=== PATIENT | female | born 1950 | race Caucasian/White ===

== ENCOUNTER → 2017-08-25 | Outpatient (CLI) | payer MEDICARE, OTHER ==
[~2017-08-25] MED LIST: ABILIFY 2 MG2 MG PO; ADULT LOW DOSE81 MG PO; ADVAIR 250-501 EACH IH; ADVAIR 250-501 EACH INH; ADVAIRDISKUS; ALPRAZOLAM 0.0.25 M1 PO; ALPRAZOLAM PO; AMBIEN CR 6.26.25 M1 PO; AMBIEN CR 6.26.25 MG PO; AMBIENCR; ASPIRIN EC325 M1 PO; ATENOLOL 50 MG50 M1 PO; ATENOLOL 50MG T50 M1 PO; BENADRYL25 MG PO; BENTYL20 MG PO; CARISOPRODOL 3350 M1 PO; CARISOPRODOL 3350 MG PO; CARISOPRODOL350 MG PO; CARVEDILOL3.125 MG PO; CATAPRES-TTS 20.2 M1 TD; CATAPRES-TTS 20.2 MG PO; CELEBREX 200 M200 MG PO; CLONIDINE HCL0.2 M2 PO; COREG25 MG PO; CYMBALTA30 MG PO; DESYREL100 MG PO; DESYREL50 MG PO; ESTRACE1 MG PO; ESTRADERM1 EACH TD; FISH OIL 1,0001 EAC5 PO; FLONASE 0.05%50 MCG NS; GLUCOPHAGE500 MG PO; GYNODIOL1 MG PO; HYDROCODON-ACE1 EAC7 PO; HYOMAX; HYOMAX-DT0.375 MG PO; IMITREX100 MG PO; INDOMETHACIN 2525 MG PO; LEVOTHROID112 MCG PO; LEVOTHYROXIN0.112 M1 PO; LISINOPRIL2.5 MG PO; MACROBID 100 M100 M1 PO; MECLIZINE HCL25 M1 PO; MORPHINE SULFAT15 M3 PO; NEURONTIN600 MG PO; NEXIUM 40 MG CA40 M1 PO; ORAMORPH SR15 M1 PO; OSCIMIN0.125 MG PO; PERCOCET PO; PHENERGAN 25 MG25 M1 PO; SIMVASTATIN40 MG PO; TOPAMAX 100 MG100 MG PO; TRAMADOL 50 MG50 MG PO; TRIAMTERENE-HC1 EAC1 PO; VICODIN 5-5001 EACH PO; VITAMIN E100 M1 PO; XANAX 0.25 MG0.25 MG PO; ZANAFLEX4 MG PO; ZOFRAN ODT4 MG PO; ZYRTEC10 M2 PO
== END ==
LOC: M.MRI 08-21 17:30
DX: M19.011 Primary osteoarthritis, right shoulder (principal); M25.411 Effusion, right shoulder

== ENCOUNTER 2017-11-06 00:49 | Emergency (ER) | payer MEDICARE, OTHER ==
[~2017-11-06] VITALS: Ht 149.9 cm; Wt 90.7 kg
[~2017-11-06 00:49] MED LIST changes: -BENADRYL25 MG PO; -COREG25 MG PO; -IMITREX100 MG PO; -INDOMETHACIN 2525 MG PO; -LISINOPRIL2.5 MG PO; -MORPHINE SULFAT15 M3 PO; -PERCOCET PO; -PHENERGAN 25 MG25 M1 PO; -TOPAMAX 100 MG100 MG PO; -ZANAFLEX4 MG PO
[2017-11-06] MEDS ORDERED: INDOMETHACIN 2525 MG PO ×2 (01:35→01:37)
[2017-11-06 01:54] VITALS: BP 146/74
[2017-12-23] MEDS ORDERED: COREG25 MG PO (10:48)
[2017-12-23] MEDS ORDERED: MORPHINE SULFAT15 M3 PO (10:52)
[2017-12-23] MEDS ORDERED: LISINOPRIL2.5 MG PO (10:53)
[2017-12-23] MEDS ORDERED: TRAMADOL 50 MG50 MG PO (10:53)
[2017-12-23] MEDS ORDERED: IMITREX100 MG PO (10:55)
[2017-12-23] MEDS ORDERED: PHENERGAN 25 MG25 M1 PO (10:57)
[2017-12-23] MEDS ORDERED: BENADRYL25 MG PO (10:57)
[2017-12-23] MEDS ORDERED: TOPAMAX 100 MG100 MG PO (10:58)
[2017-12-23] MEDS ORDERED: ZANAFLEX4 MG PO (10:59)
[2018-01-01] MEDS ORDERED: PERCOCET PO (09:59)
== END 2017-11-06 01:55 | disposition home or self-care (01) ==
LOC: M.ERS 00:49
DX: M25.522 Pain in left elbow (principal); I10 Essential (primary) hypertension; E03.9 Hypothyroidism, unspecified; E78.5 Hyperlipidemia, unspecified; J45.909 Unspecified asthma, uncomplicated; M79.7 Fibromyalgia; G43.909 Migraine, unspecified, not intractable, without status migrainosus; Z90.710 Acquired absence of both cervix and uterus; Z88.5 Allergy status to narcotic agent; Z88.6 Allergy status to analgesic agent; Z88.8 Allergy status to other drugs, medicaments and biological substances

== ENCOUNTER → 2018-01-01 | Day surgery (SDC) | payer MEDICARE, OTHER ==
[~2018-01-01] VITALS: Ht 149.9 cm; Wt 91.2 kg
[~2018-01-01] MED LIST changes: +BENADRYL25 MG PO; +COREG25 MG PO; +IMITREX100 MG PO; +INDOMETHACIN 2525 MG PO; +LISINOPRIL2.5 MG PO; +MORPHINE SULFAT15 M3 PO; +PERCOCET PO; +PHENERGAN 25 MG25 M1 PO; +TOPAMAX 100 MG100 MG PO; +ZANAFLEX4 MG PO
[2018-01-01 06:36] LABS: HEMATOCRIT 42.4 % (37.0-47.0); HEMOGLOBIN 14.3 gm/dL (12.0-15.0); MCH 31.5 pg (26.0-34.0); MCHC 33.8 g/dL (28.0-37.0); MCV 93.2 fL (80.0-100.0); RBC 4.55 mil/uL (4.20-5.00); RDW-CV 12.5 % (10.5-14.5); WBC 8.1 thou/uL (4.0-11.0)
[2018-01-01 06:40] LABS: CALCIUM 8.9 mg/dL (8.5-10.1); CREATININE 1.3 mg/dL (0.6-1.3); POTASSIUM 3.9 mmol/L (3.5-5.1)
[2018-01-01 06:45] LABS: ALBUMIN 3.5 g/dL (3.4-5.0); TOTAL BILIRUBIN 0.4 mg/dL (<0.1-1.0); TOTAL PROTEIN 7.4 g/dL (6.4-8.2)
--- NOTE | 2018-01-01 10:52 | EKG ---
[place] [address] ELECTROCARDIOGRAM REPORT Name: INDRA MENDOZA Room: [facility]#: [id number] Admission: 01/01/18 Attend Phys: Mazin Merida DO Discharge: Date of : 46 Report #: [id number] THIS REPORT FOR: //name// [facility] [place] Test Date: 2018-01-01 Test Time: 06:34:53 Pat Name: INDRAONEL MENDOZA Department: Room: Gender: F Paper Sales Representative: LARISSA NIEVES : 1950 Requested By: Mazin Merida Order Number: [id number] MD: Garland Evans Measurements Intervals Andreas Rate: 77 P: 39 PA: 180 QRS: 33 QRSD: 91 T: 41 QT: 382 QTc: 433 Interpretive Statements Sinus rhythm Left ventricular hypertrophy Compared to ECG 04/02/2012 08:11:46 Left ventricular hypertrophy now present T-wave abnormality no longer present Electronically Signed On 01-01-2018 10:52:05 CDT by Garland Evans [email or web address] <ELECTRONICALLY SIGNED> By: Garland Evans MD, [facility] 01/01/18 1052 0634 0634 Garland Evans MD, [facility] /EPI
--- NOTE | 2018-01-15 08:51 | OP ---
[address] [address] OPERATIVE REPORT Name: INDRA MENDOZA Room: [facility]#: [id number] Admission: 01/01/18 Attend Phys: Mazin Merida DO Discharge: Date of : 46 Report #: [id number] THIS REPORT FOR: //name// CC: Mazin Talavera DICTATED BY: Iban Montana DO DATE OF SERVICE: 01/01/2018 PREOPERATIVE DIAGNOSES: Right shoulder rotator cuff tear, superior labrum anterior and posterior tear and osteoarthritis of the glenohumeral joint. POSTOPERATIVE DIAGNOSES: Right shoulder rotator cuff tear, superior labrum anterior and posterior tear and osteoarthritis of the glenohumeral joint. SURGEON: Mazin Merida DO PIPE ORGAN TUNER AND REPAIRER: Iban Montana DO SECOND PIPE ORGAN TUNER AND REPAIRER: Kev Bejarano DO PROCEDURE PERFORMED: Right shoulder arthroscopic surgery with extensive debridement of labrum and rotator cuff, biceps tenotomy, subacromial decompression and open rotator cuff repair. ANESTHESIA: General with local. ESTIMATED BLOOD LOSS: 20 mL. SPECIMEN REMOVED: None. COMPLICATIONS: None. INDICATIONS FOR PROCEDURE: The patient is a pleasant 67-year-old female, was having right shoulder pain who presented to our clinic with difficulty overhead motion and weakness and pain. We attempted conservative care including activity modification, home exercise, steroid injections. This did not provide her relief. She began having issues with activities of daily living and surgical intervention was requested. MRI was performed demonstrating a rotator cuff tear as well as a SLAP tear and some osteoarthritis of the glenohumeral joint. Risks, benefits, complications, alternatives and indications of surgery were discussed with the patient including, but not limited to risk of infection, need for repeat surgery, damage to nerves and vessels, iatrogenic fracture. Other risks include continued pain, loss of motion, loss of repair of her rotator cuff. We also discussed DVT, pulmonary embolism [place] [address] OPERATIVE REPORT Name: NAYELY MENDOZAONEL Queen Room: [facility]#: [id number] Admission: 01/01/18 Attend Phys: Mazin Merida DO Discharge: Date of : 46 Report #: [id number] anesthesia up to and including . She voiced understanding and wished to proceed. DESCRIPTION OF PROCEDURE: The patient was seen in the preoperative holding area. Correct operative site was marked. Verbal and written consents were obtained. She was transferred to the operative suite and placed supine on the operating table and given the benefit of general anesthesia. She was then placed in a beach chair position. Right upper extremity was prepped and draped in the normal sterile fashion. Timeout was performed. All of the attendants were in agreement with the correct operative site and procedure to be performed on the right shoulder. We then marked on the shoulder and using an 11 blade scalpel, obtained our posterior viewing portal. The camera trocar was inserted into the joint followed by a camera and diagnostic arthroscopy was performed. At this point, we noted extensive labral fraying as well as synovial hypertrophy and there was evidence of SLAP tear. We then visualized the underside of the cuff and there was a small tear visualized in the supraspinatus region. 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 At this point, our anterior portal was obtained, localized using a spinal needle followed by an 11 blade scalpel for our portal incision. Blunt instrument was inserted into the shoulder followed by arthroscopic scissors and her biceps tenotomy was performed. We then inserted our arthroscopic shaver and performed extensive debridement of the labrum and rotator cuff as well as any hypertrophic synovium that was visualized. The shaver was removed from the shoulder and our camera was placed in the subacromial space. We then used an 18-gauge spinal needle to obtain a lateral portal. A blunt trocar was inserted followed by arthroscopic shaver and once again a debridement of the bursal side rotator cuff as well as a subacromial decompression was performed. Once again visualized the bursal side of our rotator cuff tear and decided to perform open rotator cuff repair. All instruments were removed from the shoulder and the shoulder was deflated via suction from our camera trocar. We then marked our lateral incision and using a 10 blade scalpel, we made our mini lateral incision for open rotator cuff. This was taken down bluntly to the level of the rotator cuff and once we had direct visualization of our rotator cuff tear, a cuff grasper was used to mobilize the tear as well as a rasp and a probe to free up the undersurface of the cuff. We then decided to use a SpeedFix type repair and our Scorpion was passed and our FiberTape was passed through the cuff, brought over and secured in place with a SpeedFix anchor. The wound was thoroughly irrigated. Muscle was reapproximated using 0 Vicryl in a running fashion. Skin was closed using 2-0 Vicryl in inverted interrupted fashion followed by 3-0 Monocryl subcuticular and Dermabond skin glue for our incision. Portal incisions were closed with 4-0 nylon in a simple interrupted fashion. All needle and scrub counts were correct at the end of the case x 2. The portal incisions were covered with Xeroform, 4 x 4s. The entire shoulder was covered with ABD and tape. SlingShot was placed to the right upper extremity. She was awoken from anesthesia and transferred to the PAC[place] [address] OPERATIVE REPORT Name: INDRA MENDOZA Room: [facility]#: [id number] Admission: 01/01/18 Attend Phys: Mazin Merida DO Discharge: Date of : 46 Report #: [id number] Merida was present throughout all critical decision making aspects of the case. DISPOSITION: The patient will be monitored in the PACU postoperatively and if pain allows, we will send her home today. Follow up with us in 2 weeks as scheduled and begin rotator cuff shoulder protocol. If she is having pain control issues, we will have extended stay for her and plan for discharge tomorrow. <ELECTRONICALLY SIGNED> By: Mazin Merida DO 01/15/18 0851 0929 [id number] Kendra Merida DO /nt
== END | disposition home or self-care (01) ==
LOC: M.SUR 06:05
PROVIDERS: Orthopaedic Surgery
DX: M75.101 Unspecified rotator cuff tear or rupture of right shoulder, not specified as traumatic (principal); M19.011 Primary osteoarthritis, right shoulder; M94.211 Chondromalacia, right shoulder; I12.9 Hypertensive chronic kidney disease with stage 1 through stage 4 chronic kidney disease, or unspecified chronic kidney disease; N18.3 Chronic kidney disease, stage 3 (moderate); E11.22 Type 2 diabetes mellitus with diabetic chronic kidney disease; K21.9 Gastro-esophageal reflux disease without esophagitis; E78.5 Hyperlipidemia, unspecified; J45.909 Unspecified asthma, uncomplicated; E66.09 Other obesity due to excess calories; M79.7 Fibromyalgia; D64.9 Anemia, unspecified; F32.9 Major depressive disorder, single episode, unspecified; Z90.49 Acquired absence of other specified parts of digestive tract; Z90.710 Acquired absence of both cervix and uterus; Z98.51 Tubal ligation status; Z79.899 Other long term (current) drug therapy; X58.XXXA Exposure to other specified factors, initial encounter; Y93.89 Activity, other specified; Y92.89 Other specified places as the place of occurrence of the external cause; Y99.8 Other external cause status

== ENCOUNTER 2019-01-12 12:59 | Emergency (ER) | payer MEDICARE, OTHER ==
[~2019-01-12] VITALS: Ht 154.9 cm; Wt 90.7 kg
[2019-01-12 13:35] LABS: ABSOLUTE BASOPHILS 0.1 thou/uL (0.0-0.2); ABSOLUTE EOSINOPHILS 0.1 thou/uL (0.0-0.7); ABSOLUTE MONOCYTES 0.6 thou/uL (0.0-1.2); ABSOLUTE NEUTROPHILS 5.2 thou/uL (1.6-8.1); BASOPHILS 0.9 %; EOSINOPHILS 1.4 %; HEMOGLOBIN 14.2 gm/dL (12.0-15.0); LYMPHOCYTES 24.7 %; MCHC 33.9 g/dL (28.0-37.0); MCV 91.4 fL (80.0-100.0); MONOCYTES 8.1 %; MPV 9.9 fl. (7.2-11.1); NUCLEATED RBCS 0 /100WBC; PLATELET COUNT* 228 thou/uL (150-400); POLYS 64.9 %; RDW-CV 12.2 % (10.5-14.5); WBC 7.9 thou/uL (4.0-11.0)
[2019-01-12 13:42] LABS: ANION GAP 12 mmol/L (7-16); BUN 22 mg/dL (7-18); CALCIUM 9.2 mg/dL (8.5-10.1); CHLORIDE 106 mmol/L (98-107); CO2 22 mmol/L (21-32); CREATININE 1.3 mg/dL (0.6-1.3); GLUCOSE 111 mg/dL (70-99); POTASSIUM 3.7 mmol/L (3.5-5.1); SODIUM 140 mmol/L (136-145)
[2019-01-12 13:53] LABS: ALBUMIN 3.7 g/dL (3.4-5.0); ALKALINE PHOSPHATASE 68 U/L (46-116); LIPASE 229 U/L (73-393); NT-PRO BRAIN NAT PEPTIDE 115 pg/mL (<300); SGOT 24 U/L (15-37); SGPT 42 U/L (30-65); TOTAL BILIRUBIN 0.5 mg/dL (<0.1-1.0); TOTAL PROTEIN 7.6 g/dL (6.4-8.2); TROPONIN-I LEVEL <0.06 ng/mL (<0.06)
[2019-01-12 14:05] LABS: URINE BILIRUBIN NEGATIVE (Negative); URINE BLOOD NEGATIVE (Negative); URINE CLARITY CLEAR; URINE COLOR YELLOW; URINE GLUCOSE-RANDOM NEGATIVE (Negative); URINE KETONES NEGATIVE (Negative); URINE LEUKOCYTES-REFLEX 1+ (Negative); URINE NITRITE-REFLEX NEGATIVE (Negative); URINE PROTEIN NEGATIVE (Negative)
[2019-01-12 14:16] LABS: BACTERIA-REFLEX 1-9 Few /HPF (None Seen); CASTS None Seen /LPF (None Seen); CRYSTALS None Seen /LPF (None Seen); MUCUS None Seen strn/LPF (None Seen); SQUAMOUS >10 Many /LPF (0-3); URINE RBC 0-2 Rare /HPF (0-2); URINE WBC-REFLEX 0-5 Rare /HPF (0-5)
[2019-01-12] MEDS ORDERED: LISINOPRIL10 MG PO (14:28)
[2019-01-12] MEDS ORDERED: MACROBID 100 M100 M1 PO (14:28)
[2019-01-12 14:38] VITALS: BP 142/81
--- NOTE | 2019-01-12 14:52 | EKG ---
[place] [address] ELECTROCARDIOGRAM REPORT Name: INDRA MENDOZA Room: [facility]#: [id number] Admission: 01/12/19 Attend Phys: Discharge: 01/12/19 Date of : 46 Report #: [id number] THIS REPORT FOR: //name// [facility] ED Test Date: 2019-01-12 Test Time: 13:09:42 Pat Name: INDRA MENDOZA Department: Room: Gender: F Education Diagnostician: WILLIAN : 1950 Requested By: Anurag Yang Order Number: [id number] MD: Gopal Wagoner Measurements Intervals [place] Rate: 78 P: 66 MO: 185 QRS: 53 QRSD: 93 T: 63 QT: 384 QTc: 438 Interpretive Statements Sinus rhythm Baseline wander in lead(s) V1,V2,V3,V4,V5,V6 Compared to ECG 01/01/2018 06:34:53 Left ventricular hypertrophy no longer present Electronically Signed On 01-12-2019 14:52:31 CDT by Gopal Wagoner [email or web address] <ELECTRONICALLY SIGNED> By: Gopal Wagoner MD, [facility] 01/12/19 1452 1309 1309 Gopal Wagoner MD, [facility] /EPI
== END 2019-01-12 14:41 | disposition home or self-care (01) ==
LOC: M.ERS 12:59
PROVIDERS: Emergency Medicine
DX: I10 Essential (primary) hypertension (principal); N39.0 Urinary tract infection, site not specified; E03.9 Hypothyroidism, unspecified; K58.9 Irritable bowel syndrome, unspecified; E78.5 Hyperlipidemia, unspecified; J45.909 Unspecified asthma, uncomplicated; M79.7 Fibromyalgia; G43.909 Migraine, unspecified, not intractable, without status migrainosus; F32.9 Major depressive disorder, single episode, unspecified; Z90.710 Acquired absence of both cervix and uterus; Z90.49 Acquired absence of other specified parts of digestive tract; Z98.51 Tubal ligation status; Z98.890 Other specified postprocedural states; Z88.5 Allergy status to narcotic agent

== ENCOUNTER 2019-04-25 09:02 | Emergency (ER) | payer MEDICARE, OTHER ==
[~2019-04-25] VITALS: Ht 154.9 cm; Wt 90.7 kg
[~2019-04-25 09:02] MED LIST changes: +LISINOPRIL10 MG PO
[2019-04-25 09:11] VITALS: BP 116/60
[2019-04-25] MEDS ORDERED: NORVASC 2.5 MG2.5 M1 PO (09:17)
[2019-04-25] MEDS ORDERED: FAMCYCLOVIR 50500 M1 PO (09:44)
[2019-04-25] MEDS ORDERED: ERYTHROMYCIN E3.5 G3 OPHTHALMIC (09:44)
== END 2019-04-25 09:48 | disposition home or self-care (01) ==
LOC: M.ERS 09:02
DX: B02.9 Zoster without complications (principal); I10 Essential (primary) hypertension; E11.9 Type 2 diabetes mellitus without complications; E03.9 Hypothyroidism, unspecified; E78.5 Hyperlipidemia, unspecified; J45.909 Unspecified asthma, uncomplicated; M79.7 Fibromyalgia; F32.9 Major depressive disorder, single episode, unspecified; Z90.49 Acquired absence of other specified parts of digestive tract; Z88.5 Allergy status to narcotic agent